=== PATIENT | male | born 1970 | race Caucasian/White ===

== ENCOUNTER 2020-09-26 22:03 | Inpatient (IN) | payer MEDICARE, MEDICAID ==
[~2020-09-26] VITALS: Ht 157.5 cm; Wt 56.7 kg
[2020-09-26] MEDS ORDERED: SODIUM CHLORIDE 0.9% 1,000 ML IV ONE (23:00)
[2020-09-26 23:37] LABS: MEAN CORPUSCULAR HEMOGLOBIN 33.2 pg (28.0-32.0); MEAN CORPUSCULAR VOLUME 103.4 fL (80.0-94.0); MEAN PLATELET VOLUME 8.9 fl (7.4-10.4); PLATELET 252 x1000/uL (130-400); RED CELL DISTRIBUTION WIDTH 21.6 % (11.6-14.6)
[2020-09-26 23:47] LABS: INR 1.2; PARTIAL THROMBOPLASTIN TIME 26.4 sec (23.4-31.0); PROTHROMBIN TIME 12.6 sec (9.6-11.0)
[2020-09-26 23:48] LABS: CHLORIDE 105 mEq/L (98-107)
[2020-09-27] MEDS ORDERED: ACETAMINOPHEN 325MG TABLET PO PRN (01:45)
[2020-09-27] MEDS ORDERED: ONDANSETRON HCL 4MG/2ML INJ IV PRN (01:45)
[2020-09-27] MEDS ORDERED: TRAZODONE HCL 50MG TABLET PO PRN (01:45)
[2020-09-27 01:47] LABS: PLATELET ESTIMATE NORMAL
[2020-09-27 02:52] LABS: CLARITY URINE CLEAR (CLEAR); COLOR URINE YELLOW (YELLOW); KETONES URINE NEGATIVE (NEGATIVE); LEUKOCYTE ESTERASE URINE NEGATIVE (NEGATIVE); NITRITE URINE NEGATIVE (NEGATIVE); OCCULT BLOOD URINE NEGATIVE (NEGATIVE); PROTEIN URINE TRACE (NEGATIVE); SPECIFIC GRAVITY URINE 1.011 (1.005-1.030); UROBILINOGEN URINE 0.2 E.U./dL (0.2-1.0)
[2020-09-27 11:37] VITALS: BP 127/73
[2020-09-27 13:18] VITALS: BP 127/73
[2020-09-27] MEDS ORDERED: IPRATROPIUM/ALBUTEROL 0.5-3(2.5)MG/3ML NEB HHN PRN (14:00)
[2020-09-27 16:00] VITALS: BP 111/69
[2020-09-27] MEDS ORDERED: CARB200C7 MT (16:56)
[2020-09-27] MEDS ORDERED: WARF1TAB85 MT (16:56)
[2020-09-27 20:00] VITALS: BP 112/63
[2020-09-28] VITALS: BP 108/59
[2020-09-28] MEDS: IPRATROPIUM/ALBUTEROL 0.5-3(2.5)MG/3ML NEB HHN SCH ×4 (02:52→21:11)
[2020-09-28 04:00] VITALS: BP 129/77
[2020-09-28 06:55] LABS: CHLORIDE 110 mEq/L (98-107)
[2020-09-28 07:10] LABS: HEMOGLOBIN. 9.8 g/dL (14.0-18.0); MEAN CORPUSCULAR HEMOGLOBIN 34.3 pg (28.0-32.0); MEAN CORPUSCULAR VOLUME 104.9 fL (80.0-94.0); MEAN PLATELET VOLUME 8.9 fl (7.4-10.4); PLATELET 293 x1000/uL (130-400); RED BLOOD CELL COUNT 2.86 mill/uL (4.7-6.1); RED CELL DISTRIBUTION WIDTH 21.5 % (11.6-14.6)
[2020-09-28 08:00] VITALS: BP 115/68
[2020-09-28] MEDS: HEPARIN 5000 UNITS/ML VIAL SUBCUT SCH ×3 (09:00→20:32)
[2020-09-28] MEDS: BUDESONIDE 0.5MG/2ML NEB HHN SCH ×2 (09:40→21:12)
[2020-09-28 12:00] VITALS: BP 135/80
[2020-09-28 16:00] VITALS: BP 106/73
[2020-09-28 18:40] LABS: PLATELET ESTIMATE NORMAL
[2020-09-28 20:00] VITALS: BP 108/72
[2020-09-29] VITALS: BP 138/81
[2020-09-29] MEDS: IPRATROPIUM/ALBUTEROL 0.5-3(2.5)MG/3ML NEB HHN SCH ×4 (02:38→20:37)
[2020-09-29 04:00] VITALS: BP 127/69
[2020-09-29 07:19] LABS: HEMATOCRIT. 32.2 % (42.0-52.0); HEMOGLOBIN. 10.6 g/dL (14.0-18.0); MEAN CORPUSCULAR HEMOGLOBIN 34.4 pg (28.0-32.0); MEAN CORPUSCULAR VOLUME 104.2 fL (80.0-94.0); PLATELET 284 x1000/uL (130-400); RED BLOOD CELL COUNT 3.09 mill/uL (4.7-6.1); RED CELL DISTRIBUTION WIDTH 21.2 % (11.6-14.6)
[2020-09-29 07:42] LABS: CHLORIDE 114 mEq/L (98-107)
[2020-09-29 08:00] VITALS: BP 109/69
[2020-09-29] MEDS: BUDESONIDE 0.5MG/2ML NEB HHN SCH ×3 (08:15→20:38)
[2020-09-29] MEDS: HEPARIN 5000 UNITS/ML VIAL SUBCUT SCH ×2 (08:48→22:42)
[2020-09-29 12:00] VITALS: BP 114/72
[2020-09-29 13:57] LABS: PLATELET ESTIMATE NORMAL
[2020-09-29 16:00] VITALS: BP 111/72
[2020-09-29 20:00] VITALS: BP 110/54
[2020-09-30] VITALS: BP 97/56
[2020-09-30] MEDS: IPRATROPIUM/ALBUTEROL 0.5-3(2.5)MG/3ML NEB HHN SCH ×4 (02:10→20:55)
[2020-09-30 04:00] VITALS: BP 115/48
[2020-09-30] MEDS: BUDESONIDE 0.5MG/2ML NEB HHN SCH (06:00)
[2020-09-30 06:57] LABS: BASOPHILS % 0.4 % (0.0-2.0); EOSINOPHILS % 0.7 % (0.0-5.0); HEMATOCRIT. 31.8 % (42.0-52.0); HEMOGLOBIN. 10.3 g/dL (14.0-18.0); LYMPHOCYTES % 20.2 % (20.0-50.0); MEAN CORPUSCULAR HEMOGLOBIN 33.8 pg (28.0-32.0); MEAN CORPUSCULAR VOLUME 104.6 fL (80.0-94.0); MEAN PLATELET VOLUME 8.8 fl (7.4-10.4); MONOCYTES % 12.6 % (2.0-8.0); NEUTROPHILS % 66.1 % (40.0-76.0); PLATELET 301 x1000/uL (130-400); RED BLOOD CELL COUNT 3.04 mill/uL (4.7-6.1); RED CELL DISTRIBUTION WIDTH 21.3 % (11.6-14.6)
[2020-09-30 07:18] LABS: CHLORIDE 113 mEq/L (98-107)
[2020-09-30 08:00] VITALS: BP 115/76
[2020-09-30] MEDS: HEPARIN 5000 UNITS/ML VIAL SUBCUT SCH (09:19)
[2020-09-30] MEDS: CARBAMAZEPINE 200MG TABLET PO SCH ×2 (10:09→21:26)
[2020-09-30] MEDS ORDERED: METOPROLOL TARTRATE 25MG TABLET PO SCH (10:15)
[2020-09-30 12:00] VITALS: BP 117/77
[2020-09-30] MEDS: ENOXAPARIN 60MG/0.6ML SYR SUBCUT SCH ×2 (12:00→21:27)
[2020-09-30 16:00] VITALS: BP 121/75
[2020-09-30] MEDS ORDERED: WARFARIN SODIUM 5MG TABLET PO SCH (18:00)
[2020-09-30] MEDS: SODIUM CHLORIDE 0.9% 1,000 ML IV SCH (19:08)
[2020-09-30 20:00] VITALS: BP 111/63
[2020-09-30] MEDS ORDERED: LORAZEPAM 0.5MG TABLET PO PRN (20:15)
[2020-09-30] MEDS: VANCOMYCIN 750 MG PREMIX 150 ML IV SCH (21:26)
[2020-09-30] MEDS ORDERED: PIPERACILLIN/TAZOBACTAM 3.375 G/VIAL IV SCH (22:00)
[2020-09-30] MEDS: PIPERACILLIN/TAZOBACTAM 3.375 G in DEXT 5% WATER 100 ML IV SCH (23:28)
[2020-10-01] VITALS: BP 111/82
[2020-10-01] MEDS: IPRATROPIUM/ALBUTEROL 0.5-3(2.5)MG/3ML NEB HHN SCH ×2 (02:30→09:09)
[2020-10-01] MEDS: PIPERACILLIN/TAZOBACTAM 3.375 G in DEXT 5% WATER 100 ML IV SCH ×2 (03:43→09:47)
[2020-10-01 04:00] VITALS: BP 108/75
[2020-10-01] MEDS: VANCOMYCIN 750 MG PREMIX 150 ML IV SCH (05:11)
[2020-10-01 06:24] LABS: BASOPHILS % 0.5 % (0.0-2.0); EOSINOPHILS % 0.8 % (0.0-5.0); HEMATOCRIT. 33.9 % (42.0-52.0); LYMPHOCYTES % 16.9 % (20.0-50.0); MEAN CORPUSCULAR HEMOGLOBIN 34.1 pg (28.0-32.0); MEAN CORPUSCULAR VOLUME 105.5 fL (80.0-94.0); MEAN PLATELET VOLUME 9.5 fl (7.4-10.4); MONOCYTES % 10.1 % (2.0-8.0); NEUTROPHILS % 71.7 % (40.0-76.0); PLATELET 236 x1000/uL (130-400); RED BLOOD CELL COUNT 3.21 mill/uL (4.7-6.1); RED CELL DISTRIBUTION WIDTH 21.7 % (11.6-14.6)
[2020-10-01 06:31] LABS: INR 1.1; PROTHROMBIN TIME 12.1 sec (9.6-11.0)
[2020-10-01 06:36] LABS: CHLORIDE 110 mEq/L (98-107)
[2020-10-01 08:00] VITALS: BP 116/80
[2020-10-01] MEDS: ENOXAPARIN 60MG/0.6ML SYR SUBCUT SCH (09:47)
[2020-10-01] MEDS: CARBAMAZEPINE 200MG TABLET PO SCH (09:47)
[2020-10-01] MEDS: SODIUM CHLORIDE 0.9% 1,000 ML IV SCH (09:48)
[2020-10-01 12:00] VITALS: BP 101/60
[2020-10-01 14:10] VITALS: BP 101/60
[2020-10-01] MEDS ORDERED: WARFARIN SODIUM 5MG TABLET PO NR (18:00)
== END 2020-10-01 14:18 | DRG 871 ==
LOC: ER 22:03 → 6EST 09-27 00:56 → EDBEDREQ 09-27 01:05 → EDBEDREQSVC 09-27 03:53 → EDBEDREQTM 09-27 03:53 → ENRESERV 09-27 08:09
PROVIDERS: ADMIT Internal Medicine; ATTEND Internal Medicine
DX: A41.9 Sepsis, unspecified organism (principal); J18.1 Lobar pneumonia, unspecified organism; E43 Unspecified severe protein-calorie malnutrition; J96.11 Chronic respiratory failure with hypoxia; J44.0 Chronic obstructive pulmonary disease with (acute) lower respiratory infection; R65.20 Severe sepsis without septic shock; R62.50 Unspecified lack of expected normal physiological development in childhood; D64.9 Anemia, unspecified; S90.822A Blister (nonthermal), left foot, initial encounter; S90.821A Blister (nonthermal), right foot, initial encounter; G40.909 Epilepsy, unspecified, not intractable, without status epilepticus; R13.10 Dysphagia, unspecified; L89.159 Pressure ulcer of sacral region, unspecified stage; Z87.01 Personal history of pneumonia (recurrent); Z93.3 Colostomy status; Z79.01 Long term (current) use of anticoagulants; Z99.81 Dependence on supplemental oxygen; Z68.22 Body mass index [BMI] 22.0-22.9, adult; Z79.899 Other long term (current) drug therapy; X58.XXXA Exposure to other specified factors, initial encounter; Y93.89 Activity, other specified; Y92.89 Other specified places as the place of occurrence of the external cause; Y99.8 Other external cause status; Z20.822 Contact with and (suspected) exposure to COVID-19
CPT/HCPCS: 36415; 71045; 80053; 81003; 83605; 83735; 83880; 84145; 84484; 85025; 87426; 93005; 93306; 94640; 99285; J1644; J1650; J2543; J3370; J7030; J7060; J7626

== ENCOUNTER 2021-07-31 21:00 | Inpatient (IN) | payer MEDICARE, MEDICAID ==
[~2021-07-31] VITALS: Ht 175.3 cm; Wt 62.1 kg
[~2021-07-31 21:00] MED LIST: CARB200C7 MT; WARF1TAB85 MT
[2021-07-31] MEDS ORDERED: PIPERACILLIN/TAZOBACTAM 3.375GM/50ML PREMIX IV ONE (21:45)
[2021-07-31] MEDS ORDERED: VANCOMYCIN 1G PREMIX 200 ML IV SCH (21:45)
[2021-07-31] MEDS ORDERED: SODIUM CHLORIDE 0.9% 1,000 ML IV ONE (21:45)
[2021-07-31] MEDS ORDERED: PIPERACILLIN/TAZ 3.375G PREMIX 50 ML IV NR (22:15)
[2021-07-31 22:41] LABS: HEMATOCRIT. 44.3 % (42.0-52.0); HEMOGLOBIN. 15.1 g/dL (14.0-18.0); MEAN CORPUSCULAR HEMOGLOBIN 37.1 pg (28.0-32.0); MEAN CORPUSCULAR VOLUME 108.8 fL (80.0-94.0); MEAN PLATELET VOLUME 9.8 fl (7.4-10.4); PLATELET 234 x1000/uL (130-400); RED BLOOD CELL COUNT 4.07 mill/uL (4.7-6.1)
[2021-07-31 22:46] LABS: CHLORIDE 100 mEq/L (98-107)
[2021-07-31 22:56] LABS: ETHANOL BLOOD < 10 mg/dL
[2021-07-31 22:59] LABS: CREATINE KINASE 112 IU/L (39-308)
[2021-07-31 23:02] LABS: PLATELET ESTIMATE NORMAL
[2021-07-31 23:30] LABS: CLARITY URINE CLOUDY (CLEAR); COLOR URINE DARK YELLOW (YELLOW); KETONES URINE NEGATIVE (NEGATIVE); LEUKOCYTE ESTERASE URINE 1+ (NEGATIVE); NITRITE URINE NEGATIVE (NEGATIVE); OCCULT BLOOD URINE 2+ (NEGATIVE); PH URINE 5.5 (4.5-8.0); PROTEIN URINE 2+ (NEGATIVE); SPECIFIC GRAVITY URINE 1.027 (1.005-1.030)
[2021-07-31 23:50] LABS: CANNABINOID URINE SCREEN NEGATIVE (NEGATIVE); METHADONE URINE SCREEN NEGATIVE (NEGATIVE); OPIATES URINE SCREEN NEGATIVE (NEGATIVE)
[2021-07-31 23:51] LABS: *AMPHETAMINES SCREEN URINE NEGATIVE (NEGATIVE); *BARBITURATES SCREEN URINE NEGATIVE (NEGATIVE); *BENZODIAZEPINES SCREEN URINE NEGATIVE (NEGATIVE); *COCAINE SCREEN URINE NEGATIVE (NEGATIVE); PHENCYCLIDINE URINE SCREEN NEGATIVE (NEGATIVE)
[2021-08-01] MEDS ORDERED: PIPERACILLIN/TAZOBACTAM 3.375 G in DEXTROSE 5% WATER 50 ML IV SCH ×2 (03:00→11:00)
[2021-08-01] MEDS ORDERED: IPRATROPIUM/ALBUTEROL 0.5-3(2.5)MG/3ML NEB HHN PRN ×2 (10:15→14:00)
[2021-08-01 12:13] LABS: BG BASE EXCESS -1.4 mmol/L (-2.0-2.0); BG CARBOXYHEMOGLOBIN 0.3 % (0.5-1.5); BG DEOXYHEMOGLOBIN 0.8 % (0.0-5.0); BG FRACTION INSPIRED OXYGEN 70; BG HCO3 ACT 22.3 mmol/L (22.0-26.0); BG METHEMOGLOBIN 0.4 % (0.0-1.5); BG OXYGEN SATURATION 99.2 % (92.0-98.5); BG OXYHEMOGLOBIN 98.5 % (94.0-97.0); BG PCO2 34.1 mmHg (35.0-45.0); BG PH 7.433 (7.350-7.450); BG PO2 176.1 mmHg (75.0-100.0); BG SAMPLE SITE RIGHT RADIAL; BG TOTAL HEMOGLOBIN 12.3 g/dL (12.0-18.0); BG TOTAL RESPIRATORY RATE 23 b/min; BG VENT MODE MASK - BIPAP
[2021-08-01] MEDS: PIPERACILLIN/TAZOBACTAM 3.375 G in DEXTROSE 5% WATER 50 ML IV SCH ×2 (12:45→22:29)
[2021-08-01] MEDS: METHYLPREDNISOLONE SOD SUCC 40 MG/ML VIAL IV SCH ×2 (14:15→22:29)
[2021-08-01 15:27] LABS: INR 1.2; PROTHROMBIN TIME 12.4 sec (9.6-11.0)
[2021-08-01] MEDS: IPRATROPIUM/ALBUTEROL 0.5-3(2.5)MG/3ML NEB HHN SCH ×2 (16:00→20:00)
[2021-08-01] MEDS: RIVAROXABAN 20 MG TABLET PO SCH (17:30)
[2021-08-02] MEDS: IPRATROPIUM/ALBUTEROL 0.5-3(2.5)MG/3ML NEB HHN SCH ×7 (01:58→23:41)
[2021-08-02 05:59] LABS: INR 1.2; PROTHROMBIN TIME 12.9 sec (9.6-11.0)
[2021-08-02] MEDS: METHYLPREDNISOLONE SOD SUCC 40 MG/ML VIAL IV SCH ×2 (06:15→21:09)
[2021-08-02] MEDS: PIPERACILLIN/TAZOBACTAM 3.375 G in DEXTROSE 5% WATER 50 ML IV SCH ×2 (06:15→22:00)
[2021-08-02] MEDS: RIVAROXABAN 20 MG TABLET PO SCH (17:00)
[2021-08-02 19:00] VITALS: BP 102/73
[2021-08-02 20:00] VITALS: BP 136/63
[2021-08-02 22:00] VITALS: BP 128/96
[2021-08-03] VITALS (12 sets, daily range): BP systolic 121–138; BP diastolic 46–73
[2021-08-03] MEDS: METHYLPREDNISOLONE SOD SUCC 40 MG/ML VIAL IV SCH ×3 (01:57→17:39)
[2021-08-03] MEDS: IPRATROPIUM/ALBUTEROL 0.5-3(2.5)MG/3ML NEB HHN SCH ×5 (04:25→20:59)
[2021-08-03] MEDS: PIPERACILLIN/TAZOBACTAM 3.375 G in DEXTROSE 5% WATER 50 ML IV SCH ×3 (05:18→21:36)
[2021-08-03 06:23] LABS: INR 1.1; PROTHROMBIN TIME 12.1 sec (9.6-11.0)
[2021-08-03] MEDS: METOPROLOL TARTRATE 25MG TABLET PO SCH ×2 (09:29→21:35)
[2021-08-03 10:09] LABS: HEMATOCRIT. 33.4 % (42.0-52.0); HEMOGLOBIN. 11.5 g/dL (14.0-18.0); MEAN CORPUSCULAR HEMOGLOBIN 37.4 pg (28.0-32.0); MEAN CORPUSCULAR VOLUME 108.3 fL (80.0-94.0); MEAN PLATELET VOLUME 9.6 fl (7.4-10.4); PLATELET 189 x1000/uL (130-400); RED BLOOD CELL COUNT 3.08 mill/uL (4.7-6.1); RED CELL DISTRIBUTION WIDTH 14.2 % (11.6-14.6)
[2021-08-03 11:36] LABS: CHLORIDE 104 mEq/L (98-107)
[2021-08-03] MEDS ORDERED: ONDANSETRON HCL 4MG/2ML INJ IV PRN (12:45)
[2021-08-03 14:47] LABS: PLATELET ESTIMATE NORMAL
[2021-08-03] MEDS: ASCORBIC ACID 500 MG TABLET PO SCH (14:50)
[2021-08-03] MEDS ORDERED: RIVAROXABAN 10 MG TABLET PO SCH (17:00)
[2021-08-03] MEDS: RIVAROXABAN 20 MG TABLET PO SCH (17:39)
[2021-08-03] MEDS: SODIUM CHLORIDE 1000MG TABLET PO SCH (17:40)
[2021-08-03] MEDS: TRAZODONE HCL 50MG TABLET PO SCH (21:35)
[2021-08-03] MEDS: CARBAMAZEPINE 200MG TABLET PO SCH (21:35)
[2021-08-04] VITALS (11 sets, daily range): BP systolic 117–142; BP diastolic 44–81
[2021-08-04] MEDS: METHYLPREDNISOLONE SOD SUCC 40 MG/ML VIAL IV SCH ×3 (01:47→17:41)
[2021-08-04] MEDS: IPRATROPIUM/ALBUTEROL 0.5-3(2.5)MG/3ML NEB HHN SCH ×5 (04:26→21:35)
[2021-08-04] MEDS: PIPERACILLIN/TAZOBACTAM 3.375 G in DEXTROSE 5% WATER 50 ML IV SCH ×3 (05:23→21:23)
[2021-08-04] MEDS: LEVOTHYROXINE SODIUM 50MCG TABLET PO SCH (08:04)
[2021-08-04] MEDS: DOCUSATE SODIUM SUGAR FREE 100MG/10ML UDC GT SCH (08:05)
[2021-08-04] MEDS: SODIUM CHLORIDE 1000MG TABLET PO SCH ×2 (08:05→17:41)
[2021-08-04] MEDS: CARBAMAZEPINE 200MG TABLET PO SCH ×2 (08:05→20:27)
[2021-08-04] MEDS: METOPROLOL TARTRATE 25MG TABLET PO SCH ×2 (08:05→20:25)
[2021-08-04] MEDS: ASCORBIC ACID 500 MG TABLET PO SCH (08:05)
[2021-08-04] MEDS: OMEPRAZOLE 20MG CAPSULE EXTENDED RELEASE PO SCH (08:05)
[2021-08-04] MEDS: POLYETHYLENE GLYCOL 3350 (17GM) 1 DOSE PACK PO SCH (08:06)
[2021-08-04 09:33] LABS: INR 1.1; PROTHROMBIN TIME 12.2 sec (9.6-11.0)
[2021-08-04] MEDS: RIVAROXABAN 20 MG TABLET PO SCH (17:42)
[2021-08-04] MEDS: TRAZODONE HCL 50MG TABLET PO SCH (20:27)
[2021-08-05] VITALS (11 sets, daily range): BP systolic 112–138; BP diastolic 65–76
[2021-08-05] MEDS: IPRATROPIUM/ALBUTEROL 0.5-3(2.5)MG/3ML NEB HHN SCH ×6 (00:54→20:38)
[2021-08-05] MEDS: METHYLPREDNISOLONE SOD SUCC 40 MG/ML VIAL IV SCH ×3 (01:14→20:45)
[2021-08-05] MEDS: LEVOTHYROXINE SODIUM 50MCG TABLET PO SCH (05:41)
[2021-08-05] MEDS: PIPERACILLIN/TAZOBACTAM 3.375 G in DEXTROSE 5% WATER 50 ML IV SCH ×3 (05:41→20:50)
[2021-08-05] MEDS: OMEPRAZOLE 20MG CAPSULE EXTENDED RELEASE PO SCH (05:41)
[2021-08-05] MEDS: POLYETHYLENE GLYCOL 3350 (17GM) 1 DOSE PACK PO SCH (08:38)
[2021-08-05] MEDS: DOCUSATE SODIUM SUGAR FREE 100MG/10ML UDC GT SCH (08:38)
[2021-08-05] MEDS: SODIUM CHLORIDE 1000MG TABLET PO SCH ×2 (08:39→18:32)
[2021-08-05] MEDS: METOPROLOL TARTRATE 25MG TABLET PO SCH ×2 (08:39→20:48)
[2021-08-05] MEDS: CARBAMAZEPINE 200MG TABLET PO SCH ×2 (08:39→20:49)
[2021-08-05] MEDS: ASCORBIC ACID 500 MG TABLET PO SCH (08:39)
[2021-08-05] MEDS: RIVAROXABAN 20 MG TABLET PO SCH (18:32)
[2021-08-05] MEDS: TRAZODONE HCL 50MG TABLET PO SCH (20:49)
[2021-08-06] VITALS (8 sets, daily range): BP systolic 119–139; BP diastolic 58–89
[2021-08-06] MEDS: IPRATROPIUM/ALBUTEROL 0.5-3(2.5)MG/3ML NEB HHN SCH ×4 (00:48→11:59)
[2021-08-06] MEDS: PIPERACILLIN/TAZOBACTAM 3.375 G in DEXTROSE 5% WATER 50 ML IV SCH (05:17)
[2021-08-06 06:11] LABS: HEMATOCRIT. 33.1 % (42.0-52.0); HEMOGLOBIN. 11.2 g/dL (14.0-18.0); MEAN CORPUSCULAR HEMOGLOBIN 36.8 pg (28.0-32.0); MEAN CORPUSCULAR VOLUME 108.5 fL (80.0-94.0); MEAN PLATELET VOLUME 8.8 fl (7.4-10.4); PLATELET 200 x1000/uL (130-400); RED BLOOD CELL COUNT 3.05 mill/uL (4.7-6.1); RED CELL DISTRIBUTION WIDTH 14.4 % (11.6-14.6)
[2021-08-06 06:12] LABS: CHLORIDE 102 mEq/L (98-107)
[2021-08-06] MEDS: OMEPRAZOLE 20MG CAPSULE EXTENDED RELEASE PO SCH (06:49)
[2021-08-06] MEDS: LEVOTHYROXINE SODIUM 50MCG TABLET PO SCH (06:49)
[2021-08-06] MEDS: METHYLPREDNISOLONE SOD SUCC 40 MG/ML VIAL IV SCH (09:45)
[2021-08-06] MEDS: ASCORBIC ACID 500 MG TABLET PO SCH (09:46)
[2021-08-06] MEDS: METOPROLOL TARTRATE 25MG TABLET PO SCH (09:46)
[2021-08-06] MEDS: POLYETHYLENE GLYCOL 3350 (17GM) 1 DOSE PACK PO SCH (09:46)
[2021-08-06] MEDS: SODIUM CHLORIDE 1000MG TABLET PO SCH (09:47)
[2021-08-06] MEDS: DOCUSATE SODIUM SUGAR FREE 100MG/10ML UDC GT SCH (09:47)
[2021-08-06] MEDS: CARBAMAZEPINE 200MG TABLET PO SCH (09:47)
[2021-08-06 12:21] LABS: PLATELET ESTIMATE NORMAL
[2021-08-06] MEDS ORDERED: MEROPENEM 1,000 MG in SODIUM CHLORIDE 0.9% 100 ML IV SCH (14:00)
== END 2021-08-06 17:52 | disposition home or self-care (01) | DRG 177 ==
LOC: ER 21:00 → MICUSO 23:53 → EDBEDREQTM 08-01 00:09 → EDBEDREQ 08-01 00:09 → EDBEDREQSVC 08-01 00:09 → 5EST 08-02 19:05
PROVIDERS: ADMIT Internal Medicine; ATTEND Internal Medicine
PROC: 5A09457 Assistance with Respiratory Ventilation, 24-96 Consecutive Hours, Continuous Positive Airway Pressure (ICD-10-PCS; principal; 2021-07-31)
PROC: 5A09357 Assistance with Respiratory Ventilation, Less than 24 Consecutive Hours, Continuous Positive Airway Pressure (ICD-10-PCS; 2021-08-02)
PROC: 5A09357 Assistance with Respiratory Ventilation, Less than 24 Consecutive Hours, Continuous Positive Airway Pressure (ICD-10-PCS; 2021-08-03)
DX: J69.0 Pneumonitis due to inhalation of food and vomit (principal); J96.00 Acute respiratory failure, unspecified whether with hypoxia or hypercapnia; J44.1 Chronic obstructive pulmonary disease with (acute) exacerbation; E87.1 Hypo-osmolality and hyponatremia; E44.0 Moderate protein-calorie malnutrition; J44.0 Chronic obstructive pulmonary disease with (acute) lower respiratory infection; Z20.822 Contact with and (suspected) exposure to COVID-19; R82.71 Bacteriuria; R13.10 Dysphagia, unspecified; Z93.1 Gastrostomy status; Q90.9 Down syndrome, unspecified; Z93.3 Colostomy status; Z68.30 Body mass index [BMI] 30.0-30.9, adult; Z87.01 Personal history of pneumonia (recurrent); Z99.81 Dependence on supplemental oxygen
CPT/HCPCS: 36415; 36600; 71045; 80048; 80053; 80305; 80320; 81003; 82375; 82550; 82728; 82805; 83605; 83880; 84145; 84484; 85025; 86140; 86850; 86900; 87077; 87186; 87426; 87804; 92610; 93005; 94640; 94660; 99291; J2185; J2405; J2543; J2920; J3370; J7030; J7050; J7060; G0480

== ENCOUNTER 2021-08-10 12:41 | Inpatient (IN) | payer MEDICARE, MEDICAID ==
[~2021-08-10] VITALS: Ht 157.5 cm; Wt 65.4 kg
[2021-08-10] MEDS ORDERED: ALBUTEROL (0.083%) 2.5MG/3ML NEB HHN STA (13:08)
[2021-08-10] MEDS ORDERED: METHYLPREDNISOLONE SOD SUCC 125 MG/2 ML VIAL IV STA (13:08)
[2021-08-10] MEDS ORDERED: IPRATROPIUM BROMIDE (0.02%) 0.5MG/2.5ML NEB HHN STA (13:08)
[2021-08-10] MEDS ORDERED: SODIUM CHLORIDE 0.9% 1,000 ML IV ONE (13:15)
[2021-08-10 14:00] LABS: HEMATOCRIT. 40.1 % (42.0-52.0); HEMOGLOBIN. 13.3 g/dL (14.0-18.0); MEAN CORPUSCULAR HEMOGLOBIN 36.2 pg (28.0-32.0); MEAN CORPUSCULAR VOLUME 109.1 fL (80.0-94.0); MEAN PLATELET VOLUME 8.5 fl (7.4-10.4); PLATELET 249 x1000/uL (130-400); RED BLOOD CELL COUNT 3.67 mill/uL (4.7-6.1); RED CELL DISTRIBUTION WIDTH 14.5 % (11.6-14.6)
[2021-08-10 14:07] LABS: CHLORIDE 102 mEq/L (98-107)
[2021-08-10] MEDS ORDERED: PIPERACILLIN/TAZOBACTAM 3.375GM/50ML PREMIX IV STA (14:11)
[2021-08-10] MEDS ORDERED: VANCOMYCIN 1G PREMIX 200 ML IV STA (14:11)
[2021-08-10] MEDS ORDERED: PIPERACILLIN/TAZ 3.375G PREMIX 50 ML IV NR (14:30)
[2021-08-10] MEDS ORDERED: VANCOMYCIN 1GM PMX (XELLIA) 200 ML IV NR (14:30)
[2021-08-10 14:35] LABS: PLATELET ESTIMATE NORMAL
[2021-08-10] MEDS ORDERED: DOCUSATE SODIUM 100MG CAPSULE PO PRN (21:30)
[2021-08-10] MEDS ORDERED: HYDROCODONE/ACETAMINOPHEN 5/325MG TABLET PO PRN (21:30)
[2021-08-10] MEDS ORDERED: MAGNESIUM/ALUMINUM HYDROXIDE/SIMETHICONE 30ML UDC PO PRN (21:30)
[2021-08-10] MEDS ORDERED: CLONIDINE 0.1MG TABLET PO PRN (21:30)
[2021-08-10] MEDS ORDERED: ONDANSETRON HCL 4MG/2ML INJ IV PRN (21:30)
[2021-08-10] MEDS ORDERED: GUAIFENESIN 200MG/10ML SUGAR FREE UDC PO PRN (21:30)
[2021-08-10] MEDS ORDERED: ACETAMINOPHEN 325MG TABLET PO PRN (21:30)
[2021-08-10] MEDS ORDERED: IPRATROPIUM/ALBUTEROL 0.5-3(2.5)MG/3ML NEB HHN PRN (21:30)
[2021-08-10] MEDS ORDERED: ENOXAPARIN 40MG/0.4ML SYR SUBCUT SCH (21:33)
[2021-08-10] MEDS ORDERED: VANCOMYCIN 1GM PMX (XELLIA) 200 ML IV SCH (22:00)
[2021-08-10] MEDS ORDERED: VANCOMYCIN 1G PREMIX 200 ML IV SCH (22:00)
[2021-08-10] MEDS: METHYLPREDNISOLONE SOD SUCC 40 MG/ML VIAL IV SCH (23:11)
[2021-08-11] MEDS ORDERED: VANCOMYCIN 1,000 MG in DEXT 5% WATER 250 ML IV SCH (03:00)
[2021-08-11 03:29] LABS: HEMATOCRIT. 35.9 % (42.0-52.0); HEMOGLOBIN. 12.1 g/dL (14.0-18.0); MEAN CORPUSCULAR HEMOGLOBIN 36.4 pg (28.0-32.0); MEAN CORPUSCULAR VOLUME 107.8 fL (80.0-94.0); MEAN PLATELET VOLUME 8.5 fl (7.4-10.4); PLATELET 219 x1000/uL (130-400); RED BLOOD CELL COUNT 3.33 mill/uL (4.7-6.1); RED CELL DISTRIBUTION WIDTH 14.6 % (11.6-14.6)
[2021-08-11 03:32] LABS: CHLORIDE 105 mEq/L (98-107)
[2021-08-11 03:39] LABS: LDL CHOLESTEROL 72 mg/dL (5-100)
[2021-08-11 03:41] LABS: HDL CHOLESTEROL 69 mg/dL (40-59)
[2021-08-11 03:43] LABS: CREATINE KINASE 114 IU/L (39-308)
[2021-08-11 03:44] LABS: CREATINE KINASE MB FRACTION 2.3 ng/mL (0.5-3.6)
[2021-08-11] MEDS: PIPERACILLIN/TAZOBACTAM 3.375 G in DEXTROSE 5% WATER 50 ML IV SCH ×2 (03:52→07:54)
[2021-08-11] MEDS: IPRATROPIUM/ALBUTEROL 0.5-3(2.5)MG/3ML NEB HHN SCH ×7 (04:00→20:15)
[2021-08-11] MEDS: METHYLPREDNISOLONE SOD SUCC 40 MG/ML VIAL IV SCH ×3 (06:35→22:00)
[2021-08-11 07:50] LABS: PLATELET ESTIMATE NORMAL
[2021-08-11 10:15] LABS: *AMPHETAMINES SCREEN URINE NEGATIVE (NEGATIVE); *BARBITURATES SCREEN URINE NEGATIVE (NEGATIVE); *BENZODIAZEPINES SCREEN URINE NEGATIVE (NEGATIVE); *COCAINE SCREEN URINE NEGATIVE (NEGATIVE)
[2021-08-11 10:16] LABS: CANNABINOID URINE SCREEN NEGATIVE (NEGATIVE); OPIATES URINE SCREEN NEGATIVE (NEGATIVE); PHENCYCLIDINE URINE SCREEN NEGATIVE (NEGATIVE)
[2021-08-11 10:17] LABS: METHADONE URINE SCREEN NEGATIVE (NEGATIVE)
[2021-08-11 11:12] LABS: BG BASE EXCESS -1.5 mmol/L (-2.0-2.0); BG CARBOXYHEMOGLOBIN 0.3 % (0.5-1.5); BG DEOXYHEMOGLOBIN 5.4 % (0.0-5.0); BG FRACTION INSPIRED OXYGEN 28; BG HCO3 ACT 21.4 mmol/L (22.0-26.0); BG METHEMOGLOBIN 0.2 % (0.0-1.5); BG OXYGEN SATURATION 94.6 % (92.0-98.5); BG OXYHEMOGLOBIN 94.1 % (94.0-97.0); BG PCO2 30.5 mmHg (35.0-45.0); BG PH 7.463 (7.350-7.450); BG PO2 71.8 mmHg (75.0-100.0); BG SAMPLE SITE RIGHT BRACHIAL; BG TOTAL HEMOGLOBIN 12.4 g/dL (12.0-18.0); BG VENT MODE NASAL CANNULA
[2021-08-11 13:55] LABS: CREATINE KINASE 148 IU/L (39-308)
[2021-08-11 13:56] LABS: CREATINE KINASE MB FRACTION 2.4 ng/mL (0.5-3.6); INR 1.2; PROTHROMBIN TIME 12.9 sec (9.6-11.0)
[2021-08-11] MEDS: ACETYLCYSTEINE 100MG/ML 10% VIAL 4ML INH SCH ×2 (15:21→22:00)
[2021-08-11] MEDS: METRONIDAZOLE 500 MG PREMIX 100 ML IV SCH ×2 (15:24→19:00)
[2021-08-11] MEDS: CEFTRIAXONE 1,000 MG in DEXTROSE 5% WATER 50 ML IV SCH (15:25)
[2021-08-11] MEDS ORDERED: RIVAROXABAN 20 MG TABLET PO SCH (17:00)
[2021-08-11] MEDS ORDERED: CARBAMAZEPINE 200MG/10ML UDC PO SCH (17:00)
[2021-08-11] MEDS ORDERED: CARBAMAZEPINE 200MG TABLET PO SCH (17:00)
[2021-08-11] MEDS: GUAIFENESIN 600MG ER TABLET PO SCH (21:00)
[2021-08-11] MEDS ORDERED: VANCOMYCIN 1GM PMX (XELLIA) 200 ML IV SCH (22:15)
[2021-08-11] MEDS ORDERED: VANCOMYCIN 750MG PREMIX 150 ML IV SCH (23:00)
[2021-08-12] VITALS (11 sets, daily range): BP systolic 91–149; BP diastolic 38–90
[2021-08-12] MEDS: IPRATROPIUM/ALBUTEROL 0.5-3(2.5)MG/3ML NEB HHN SCH ×4 (01:55→20:55)
[2021-08-12] MEDS: METRONIDAZOLE 500 MG PREMIX 100 ML IV SCH ×3 (03:00→22:27)
[2021-08-12 05:05] LABS: HEMOGLOBIN. 10.6 g/dL (14.0-18.0); MEAN CORPUSCULAR HEMOGLOBIN 37.1 pg (28.0-32.0); MEAN CORPUSCULAR VOLUME 108.8 fL (80.0-94.0); MEAN PLATELET VOLUME 8.6 fl (7.4-10.4); PLATELET 214 x1000/uL (130-400); RED BLOOD CELL COUNT 2.85 mill/uL (4.7-6.1); RED CELL DISTRIBUTION WIDTH 14.7 % (11.6-14.6)
[2021-08-12 05:14] LABS: INR 1.3; PROTHROMBIN TIME 13.5 sec (9.6-11.0)
[2021-08-12 05:15] LABS: CHLORIDE 105 mEq/L (98-107)
[2021-08-12] MEDS: METHYLPREDNISOLONE SOD SUCC 40 MG/ML VIAL IV SCH ×3 (06:16→22:26)
[2021-08-12] MEDS: GUAIFENESIN 600MG ER TABLET PO SCH ×2 (09:21→21:00)
[2021-08-12] MEDS: ACETYLCYSTEINE 100MG/ML 10% VIAL 4ML INH SCH ×2 (09:25→15:40)
[2021-08-12 09:37] LABS: PLATELET ESTIMATE NORMAL
[2021-08-12] MEDS: VANCOMYCIN 750MG PREMIX 150 ML IV SCH ×2 (11:05→18:13)
[2021-08-12] MEDS: CARBAMAZEPINE 200MG TABLET PO SCH ×2 (11:05→17:53)
[2021-08-12] MEDS: CEFTRIAXONE 1,000 MG in DEXTROSE 5% WATER 50 ML IV SCH (13:10)
[2021-08-12] MEDS: ENOXAPARIN 60MG/0.6ML SYR SUBCUT SCH (17:53)
[2021-08-13] VITALS (12 sets, daily range): BP systolic 108–124; BP diastolic 44–82
[2021-08-13] MEDS: ACETYLCYSTEINE 100MG/ML 10% VIAL 4ML INH SCH ×3 (00:47→16:37)
[2021-08-13] MEDS: IPRATROPIUM/ALBUTEROL 0.5-3(2.5)MG/3ML NEB HHN SCH ×6 (00:47→20:24)
[2021-08-13] MEDS: VANCOMYCIN 750MG PREMIX 150 ML IV SCH ×2 (03:12→21:08)
[2021-08-13] MEDS: METRONIDAZOLE 500 MG PREMIX 100 ML IV SCH ×3 (06:19→22:21)
[2021-08-13] MEDS: METHYLPREDNISOLONE SOD SUCC 40 MG/ML VIAL IV SCH ×3 (06:19→22:21)
[2021-08-13] MEDS: ENOXAPARIN 60MG/0.6ML SYR SUBCUT SCH ×2 (06:20→17:29)
[2021-08-13 06:59] LABS: HEMATOCRIT. 31.1 % (42.0-52.0); HEMOGLOBIN. 10.6 g/dL (14.0-18.0); MEAN CORPUSCULAR VOLUME 108.7 fL (80.0-94.0); MEAN PLATELET VOLUME 8.6 fl (7.4-10.4); PLATELET 192 x1000/uL (130-400); RED BLOOD CELL COUNT 2.86 mill/uL (4.7-6.1); RED CELL DISTRIBUTION WIDTH 14.6 % (11.6-14.6)
[2021-08-13 07:05] LABS: INR 1.2; PROTHROMBIN TIME 12.5 sec (9.6-11.0)
[2021-08-13 07:18] LABS: CHLORIDE 106 mEq/L (98-107)
[2021-08-13] MEDS: GUAIFENESIN 600MG ER TABLET PO SCH ×2 (08:44→21:00)
[2021-08-13] MEDS: CARBAMAZEPINE 200MG TABLET PO SCH ×2 (09:10→17:29)
[2021-08-13] MEDS: CEFTRIAXONE 1,000 MG in DEXTROSE 5% WATER 50 ML IV SCH (12:06)
[2021-08-13 18:59] LABS: PLATELET ESTIMATE NORMAL
[2021-08-14] VITALS (9 sets, daily range): BP systolic 112–142; BP diastolic 43–87
[2021-08-14] MEDS: IPRATROPIUM/ALBUTEROL 0.5-3(2.5)MG/3ML NEB HHN SCH ×6 (00:22→22:01)
[2021-08-14] MEDS: ACETYLCYSTEINE 100MG/ML 10% VIAL 4ML INH SCH ×2 (00:22→09:45)
[2021-08-14] MEDS: METHYLPREDNISOLONE SOD SUCC 40 MG/ML VIAL IV SCH ×2 (05:56→13:16)
[2021-08-14] MEDS: METRONIDAZOLE 500 MG PREMIX 100 ML IV SCH ×3 (05:56→23:18)
[2021-08-14] MEDS: ENOXAPARIN 60MG/0.6ML SYR SUBCUT SCH ×2 (05:57→18:29)
[2021-08-14 05:58] LABS: INR 1.2; PROTHROMBIN TIME 12.4 sec (9.6-11.0)
[2021-08-14] MEDS: GUAIFENESIN 600MG ER TABLET PO SCH ×2 (08:04→23:20)
[2021-08-14] MEDS: VANCOMYCIN 750MG PREMIX 150 ML IV SCH (08:04)
[2021-08-14] MEDS: CARBAMAZEPINE 200MG TABLET PO SCH ×2 (08:04→23:20)
[2021-08-14] MEDS ORDERED: NALOXONE HCL 0.4MG/ML VIAL IV PRN (09:45)
[2021-08-14] MEDS: CEFTRIAXONE 1,000 MG in DEXTROSE 5% WATER 50 ML IV SCH (11:25)
[2021-08-14] MEDS: CEFEPIME 1,000 MG in DEXTROSE 5% WATER 50 ML IV SCH (17:00)
[2021-08-14] MEDS: LINEZOLID 600 MG PREMIX 300 ML IV SCH (18:00)
[2021-08-14] MEDS: METHYLPREDNISOLONE SOD SUCC 125 MG/2 ML VIAL IV SCH (23:19)
[2021-08-14] MEDS: GUAIFENESIN 200MG/10ML SUGAR FREE UDC GT SCH (23:45)
[2021-08-15] MEDS: ACETYLCYSTEINE 100MG/ML 10% VIAL 4ML INH SCH ×5 (00:35→23:21)
[2021-08-15] MEDS: IPRATROPIUM/ALBUTEROL 0.5-3(2.5)MG/3ML NEB HHN SCH ×6 (00:38→21:12)
[2021-08-15] MEDS: GUAIFENESIN 200MG/10ML SUGAR FREE UDC GT SCH ×6 (03:25→23:45)
[2021-08-15] MEDS: CEFEPIME 1,000 MG in DEXTROSE 5% WATER 50 ML IV SCH ×2 (06:44→17:11)
[2021-08-15] MEDS: ENOXAPARIN 60MG/0.6ML SYR SUBCUT SCH ×2 (06:49→17:11)
[2021-08-15] MEDS: METHYLPREDNISOLONE SOD SUCC 125 MG/2 ML VIAL IV SCH ×2 (06:49→13:39)
[2021-08-15] MEDS: METRONIDAZOLE 500 MG PREMIX 100 ML IV SCH ×3 (07:07→21:23)
[2021-08-15] MEDS: LINEZOLID 600 MG PREMIX 300 ML IV SCH ×2 (07:08→18:14)
[2021-08-15 07:16] LABS: HEMATOCRIT. 33.3 % (42.0-52.0); HEMOGLOBIN. 11.5 g/dL (14.0-18.0); MEAN CORPUSCULAR HEMOGLOBIN 37.6 pg (28.0-32.0); MEAN CORPUSCULAR VOLUME 108.7 fL (80.0-94.0); MEAN PLATELET VOLUME 8.7 fl (7.4-10.4); PLATELET 210 x1000/uL (130-400); RED BLOOD CELL COUNT 3.06 mill/uL (4.7-6.1); RED CELL DISTRIBUTION WIDTH 14.7 % (11.6-14.6)
[2021-08-15 07:29] LABS: INR 1.2; PROTHROMBIN TIME 12.8 sec (9.6-11.0)
[2021-08-15 07:52] LABS: CHLORIDE 103 mEq/L (98-107)
[2021-08-15 08:00] VITALS: BP 94/57
[2021-08-15] MEDS: CARBAMAZEPINE 200MG TABLET PO SCH ×2 (08:38→21:08)
[2021-08-15] MEDS ORDERED: DOCUSATE SODIUM SUGAR FREE 100MG/10ML UDC GT PRN (09:00)
[2021-08-15 12:00] VITALS: BP 96/51
[2021-08-15 13:35] LABS: PLATELET ESTIMATE NORMAL
[2021-08-15 16:00] VITALS: BP 93/50
[2021-08-15 20:00] VITALS: BP_SYST 117; BP_SYST 127; BP_DIAS 59; BP_DIAS 62
[2021-08-15] MEDS: METHYLPREDNISOLONE SOD SUCC 40 MG/ML VIAL IV SCH (21:23)
[2021-08-16] VITALS: BP 138/66
[2021-08-16 04:00] VITALS: BP 121/73
[2021-08-16] MEDS: IPRATROPIUM/ALBUTEROL 0.5-3(2.5)MG/3ML NEB HHN SCH ×4 (04:32→21:20)
[2021-08-16] MEDS: GUAIFENESIN 200MG/10ML SUGAR FREE UDC GT SCH ×6 (05:03→23:45)
[2021-08-16] MEDS: CEFEPIME 1,000 MG in DEXTROSE 5% WATER 50 ML IV SCH ×2 (05:03→17:34)
[2021-08-16] MEDS: ENOXAPARIN 60MG/0.6ML SYR SUBCUT SCH ×2 (05:28→17:34)
[2021-08-16] MEDS: LINEZOLID 600 MG PREMIX 300 ML IV SCH ×2 (05:28→18:51)
[2021-08-16] MEDS: METHYLPREDNISOLONE SOD SUCC 40 MG/ML VIAL IV SCH ×3 (05:29→21:17)
[2021-08-16] MEDS: METRONIDAZOLE 500 MG PREMIX 100 ML IV SCH ×3 (05:31→21:17)
[2021-08-16 07:27] LABS: HEMOGLOBIN. 12.5 g/dL (14.0-18.0); MEAN CORPUSCULAR VOLUME 109.4 fL (80.0-94.0); MEAN PLATELET VOLUME 8.9 fl (7.4-10.4); PLATELET 220 x1000/uL (130-400); RED BLOOD CELL COUNT 3.38 mill/uL (4.7-6.1); RED CELL DISTRIBUTION WIDTH 14.6 % (11.6-14.6)
[2021-08-16 07:31] LABS: CHLORIDE 102 mEq/L (98-107); INR 1.2; PROTHROMBIN TIME 12.9 sec (9.6-11.0)
[2021-08-16] MEDS: CARBAMAZEPINE 200MG TABLET PO SCH ×2 (08:43→21:13)
[2021-08-16] MEDS: ACETYLCYSTEINE 100MG/ML 10% VIAL 4ML INH SCH (09:29)
[2021-08-16 16:28] LABS: PLATELET ESTIMATE NORMAL
[2021-08-16 20:00] VITALS: BP 116/65
[2021-08-17] VITALS: BP 132/65
[2021-08-17] MEDS: IPRATROPIUM/ALBUTEROL 0.5-3(2.5)MG/3ML NEB HHN SCH ×6 (00:49→21:30)
[2021-08-17] MEDS: GUAIFENESIN 200MG/10ML SUGAR FREE UDC GT SCH ×6 (03:30→23:22)
[2021-08-17 04:37] VITALS: BP 133/84
[2021-08-17] MEDS: CEFEPIME 1,000 MG in DEXTROSE 5% WATER 50 ML IV SCH ×2 (05:41→16:35)
[2021-08-17] MEDS: ENOXAPARIN 60MG/0.6ML SYR SUBCUT SCH ×2 (05:44→17:19)
[2021-08-17] MEDS: METHYLPREDNISOLONE SOD SUCC 40 MG/ML VIAL IV SCH ×3 (05:44→20:36)
[2021-08-17] MEDS: LINEZOLID 600 MG PREMIX 300 ML IV SCH ×2 (06:10→17:19)
[2021-08-17 08:00] VITALS: BP 127/73
[2021-08-17] MEDS: CARBAMAZEPINE 200MG TABLET PO SCH ×2 (09:39→20:36)
[2021-08-17 12:00] VITALS: BP 107/75
[2021-08-17 16:00] VITALS: BP 109/53
[2021-08-17 20:00] VITALS: BP 95/64
[2021-08-17] MEDS: ACETYLCYSTEINE 100MG/ML 10% VIAL 4ML INH SCH (21:36)
[2021-08-18] VITALS: BP 116/60
[2021-08-18] MEDS: IPRATROPIUM/ALBUTEROL 0.5-3(2.5)MG/3ML NEB HHN SCH ×6 (01:21→21:55)
[2021-08-18] MEDS: GUAIFENESIN 200MG/10ML SUGAR FREE UDC GT SCH ×6 (02:25→21:59)
[2021-08-18 04:00] VITALS: BP 100/61
[2021-08-18] MEDS: LINEZOLID 600 MG PREMIX 300 ML IV SCH ×2 (05:10→17:42)
[2021-08-18] MEDS: ENOXAPARIN 60MG/0.6ML SYR SUBCUT SCH ×2 (05:26→17:43)
[2021-08-18] MEDS: METHYLPREDNISOLONE SOD SUCC 40 MG/ML VIAL IV SCH (06:38)
[2021-08-18] MEDS: CEFEPIME 1,000 MG in DEXTROSE 5% WATER 50 ML IV SCH ×2 (06:39→16:04)
[2021-08-18] MEDS: ACETYLCYSTEINE 100MG/ML 10% VIAL 4ML INH SCH ×4 (07:59→21:56)
[2021-08-18 08:00] VITALS: BP 107/57
[2021-08-18] MEDS: CARBAMAZEPINE 200MG TABLET PO SCH ×2 (09:37→21:46)
[2021-08-18] MEDS ORDERED: LINE600T14 MT (10:23)
[2021-08-18 12:00] VITALS: BP 103/66
[2021-08-18] MEDS: PREDNISONE 20MG TABLET PO SCH (13:13)
[2021-08-18] MEDS: BUDESONIDE 0.5MG/2ML NEB HHN SCH (15:18)
[2021-08-18 16:00] VITALS: BP 113/54
[2021-08-18 20:00] VITALS: BP 101/54
[2021-08-19] VITALS: BP 94/59
[2021-08-19] MEDS: IPRATROPIUM/ALBUTEROL 0.5-3(2.5)MG/3ML NEB HHN SCH ×6 (00:26→21:20)
[2021-08-19] MEDS: BUDESONIDE 0.5MG/2ML NEB HHN SCH ×2 (00:30→09:16)
[2021-08-19 04:00] VITALS: BP 106/69
[2021-08-19] MEDS: CEFEPIME 1,000 MG in DEXTROSE 5% WATER 50 ML IV SCH ×2 (04:15→16:44)
[2021-08-19] MEDS: GUAIFENESIN 200MG/10ML SUGAR FREE UDC GT SCH ×5 (04:15→19:45)
[2021-08-19] MEDS: LINEZOLID 600 MG PREMIX 300 ML IV SCH ×2 (06:15→17:41)
[2021-08-19] MEDS: ENOXAPARIN 60MG/0.6ML SYR SUBCUT SCH ×2 (06:35→17:41)
[2021-08-19 08:00] VITALS: BP 97/67
[2021-08-19] MEDS: PREDNISONE 20MG TABLET PO SCH ×2 (08:33→16:44)
[2021-08-19] MEDS: CARBAMAZEPINE 200MG TABLET PO SCH ×2 (08:33→21:40)
[2021-08-19] MEDS ORDERED: PREDNISONE 20MG TABLET PO SCH (09:00)
[2021-08-19 12:00] VITALS: BP 105/64
[2021-08-19 16:00] VITALS: BP 104/64
[2021-08-19] MEDS: ACETYLCYSTEINE 100MG/ML 10% VIAL 4ML INH SCH (16:44)
[2021-08-19 20:00] VITALS: BP 107/60
[2021-08-20] VITALS: BP 113/55
[2021-08-20] MEDS: BUDESONIDE 0.5MG/2ML NEB HHN SCH ×2 (00:30→08:05)
[2021-08-20] MEDS: IPRATROPIUM/ALBUTEROL 0.5-3(2.5)MG/3ML NEB HHN SCH ×6 (00:53→21:28)
[2021-08-20] MEDS: GUAIFENESIN 200MG/10ML SUGAR FREE UDC GT SCH ×6 (00:53→21:41)
[2021-08-20] MEDS: ACETYLCYSTEINE 100MG/ML 10% VIAL 4ML INH SCH ×4 (00:53→15:40)
[2021-08-20 04:00] VITALS: BP 124/73
[2021-08-20] MEDS: ENOXAPARIN 60MG/0.6ML SYR SUBCUT SCH ×2 (05:31→18:00)
[2021-08-20] MEDS: CEFEPIME 1,000 MG in DEXTROSE 5% WATER 50 ML IV SCH ×2 (05:31→19:16)
[2021-08-20] MEDS: PREDNISONE 20MG TABLET PO SCH ×2 (08:45→19:00)
[2021-08-20] MEDS: CARBAMAZEPINE 200MG TABLET PO SCH ×2 (08:46→21:41)
[2021-08-20 20:00] VITALS: BP 111/58
[2021-08-21] VITALS: BP 106/64
[2021-08-21] MEDS: GUAIFENESIN 200MG/10ML SUGAR FREE UDC GT SCH ×6 (00:28→21:24)
[2021-08-21] MEDS: BUDESONIDE 0.5MG/2ML NEB HHN SCH ×2 (00:30→04:56)
[2021-08-21] MEDS: IPRATROPIUM/ALBUTEROL 0.5-3(2.5)MG/3ML NEB HHN SCH ×6 (01:20→20:47)
[2021-08-21 04:00] VITALS: BP 102/70
[2021-08-21] MEDS: CEFEPIME 1,000 MG in DEXTROSE 5% WATER 50 ML IV SCH ×2 (04:23→17:44)
[2021-08-21] MEDS: ENOXAPARIN 60MG/0.6ML SYR SUBCUT SCH ×2 (05:35→18:48)
[2021-08-21] MEDS: LINEZOLID 600 MG PREMIX 300 ML IV SCH ×2 (05:35→18:04)
[2021-08-21 08:00] VITALS: BP 109/83
[2021-08-21] MEDS: CARBAMAZEPINE 200MG TABLET PO SCH ×2 (08:19→21:24)
[2021-08-21] MEDS: PREDNISONE 20MG TABLET PO SCH ×2 (08:20→17:50)
[2021-08-21 12:00] VITALS: BP 106/66
[2021-08-21 16:00] VITALS: BP 108/79
[2021-08-21 20:00] VITALS: BP 118/61
[2021-08-21] MEDS: ACETYLCYSTEINE 100MG/ML 10% VIAL 4ML INH SCH (20:57)
[2021-08-22] VITALS: BP 137/71
[2021-08-22] MEDS: IPRATROPIUM/ALBUTEROL 0.5-3(2.5)MG/3ML NEB HHN SCH ×5 (00:34→21:02)
[2021-08-22] MEDS: GUAIFENESIN 200MG/10ML SUGAR FREE UDC GT SCH ×6 (00:45→20:11)
[2021-08-22 04:00] VITALS: BP 132/76
[2021-08-22] MEDS: ENOXAPARIN 60MG/0.6ML SYR SUBCUT SCH ×2 (06:53→17:06)
[2021-08-22] MEDS: ACETYLCYSTEINE 100MG/ML 10% VIAL 4ML INH SCH ×2 (07:32→17:28)
[2021-08-22 07:41] VITALS: BP 100/66
[2021-08-22] MEDS: PREDNISONE 20MG TABLET PO SCH ×2 (09:07→17:05)
[2021-08-22] MEDS: CARBAMAZEPINE 200MG TABLET PO SCH ×2 (09:07→20:11)
[2021-08-22] MEDS: LINEZOLID 600MG TABLET PO SCH ×2 (09:10→20:14)
[2021-08-22 12:00] VITALS: BP 117/51
[2021-08-22 16:00] VITALS: BP 100/60
[2021-08-22] MEDS ORDERED: METHYLPREDNISOLONE SOD SUCC 125 MG/2 ML VIAL IV NR (16:45)
[2021-08-22 20:00] VITALS: BP 110/64
[2021-08-23] VITALS: BP 104/55
[2021-08-23] MEDS: GUAIFENESIN 200MG/10ML SUGAR FREE UDC GT SCH ×6 (00:15→21:22)
[2021-08-23] MEDS: IPRATROPIUM/ALBUTEROL 0.5-3(2.5)MG/3ML NEB HHN SCH ×6 (00:59→20:24)
[2021-08-23 04:00] VITALS: BP 113/68
[2021-08-23] MEDS: ENOXAPARIN 60MG/0.6ML SYR SUBCUT SCH ×2 (06:07→17:44)
[2021-08-23 08:00] VITALS: BP 112/65
[2021-08-23] MEDS: CARBAMAZEPINE 200MG TABLET PO SCH ×2 (08:54→21:22)
[2021-08-23] MEDS: PREDNISONE 20MG TABLET PO SCH ×2 (08:54→17:41)
[2021-08-23] MEDS: LINEZOLID 600MG TABLET PO SCH ×2 (08:54→21:22)
[2021-08-23 12:00] VITALS: BP 103/79
[2021-08-23 16:00] VITALS: BP 109/72
[2021-08-23 20:00] VITALS: BP 122/61
[2021-08-24] VITALS (7 sets, daily range): BP systolic 93–124; BP diastolic 49–73
[2021-08-24] MEDS: IPRATROPIUM/ALBUTEROL 0.5-3(2.5)MG/3ML NEB HHN SCH ×5 (00:31→16:16)
[2021-08-24] MEDS: GUAIFENESIN 200MG/10ML SUGAR FREE UDC GT SCH ×5 (05:24→15:43)
[2021-08-24] MEDS: ENOXAPARIN 60MG/0.6ML SYR SUBCUT SCH ×2 (05:28→18:00)
[2021-08-24 07:50] LABS: HEMATOCRIT. 31.6 % (42.0-52.0); MEAN CORPUSCULAR HEMOGLOBIN 37.8 pg (28.0-32.0); MEAN PLATELET VOLUME 8.3 fl (7.4-10.4); PLATELET 234 x1000/uL (130-400); RED CELL DISTRIBUTION WIDTH 15.4 % (11.6-14.6)
[2021-08-24 08:09] LABS: CHLORIDE 102 mEq/L (98-107)
[2021-08-24] MEDS: CARBAMAZEPINE 200MG TABLET PO SCH (08:38)
[2021-08-24] MEDS: PREDNISONE 20MG TABLET PO SCH ×2 (08:38→17:51)
[2021-08-24] MEDS: LINEZOLID 600MG TABLET PO SCH (08:38)
[2021-08-24] MEDS ORDERED: ALBU18HF2 IH (13:28)
[2021-08-24] MEDS ORDERED: IPRA3AMP9 NEB (13:28)
[2021-08-24] MEDS ORDERED: DEXTL MT (13:28)
[2021-08-24] MEDS ORDERED: P20 MT (13:28)
[2021-08-24 13:39] LABS: PLATELET ESTIMATE NORMAL
== END 2021-08-24 20:32 | disposition home health service (06) | DRG 871 ==
LOC: ER 12:41 → EDBEDREQ 13:38 → EDBEDREQSVC 16:36 → EDBEDREQTM 16:36 → EDBEDREQ 16:36 → MICUSO 18:27 → EDBEDREQTM 18:45 → EDBEDREQ 18:45 → CANRESERV 23:25 → ENRESERV 23:25 → MICUSO 08-11 01:57 → 3WST 08-12 05:09 → 6EST 08-14 17:29
PROVIDERS: ADMIT Internal Medicine; ATTEND Internal Medicine
DX: A41.81 Sepsis due to Enterococcus (principal); J18.9 Pneumonia, unspecified organism; J96.01 Acute respiratory failure with hypoxia; E87.1 Hypo-osmolality and hyponatremia; E87.2 Acidosis; E44.0 Moderate protein-calorie malnutrition; I50.32 Chronic diastolic (congestive) heart failure; J44.0 Chronic obstructive pulmonary disease with (acute) lower respiratory infection; J44.1 Chronic obstructive pulmonary disease with (acute) exacerbation; Z16.21 Resistance to vancomycin; N39.0 Urinary tract infection, site not specified; B96.5 Pseudomonas (aeruginosa) (mallei) (pseudomallei) as the cause of diseases classified elsewhere; Q90.9 Down syndrome, unspecified; G40.909 Epilepsy, unspecified, not intractable, without status epilepticus; D64.9 Anemia, unspecified; D72.810 Lymphocytopenia; I11.0 Hypertensive heart disease with heart failure; R13.10 Dysphagia, unspecified; Z93.3 Colostomy status; Z51.5 Encounter for palliative care; Z93.1 Gastrostomy status; Z99.81 Dependence on supplemental oxygen
CPT/HCPCS: 36415; 36600; 71045; 71250; 80048; 80053; 80061; 80202; 80305; 82270; 82375; 82550; 82553; 82805; 83605; 83880; 84145; 84443; 84484; 85025; 85044; 85379; 87077; 87186; 87426; 87804; 93005; 93306; 93923; 93970; 94640; 99291; J0692; J0696; J1650; J2020; J2543; J2920; J2930; J3370; J3490; J7030; J7040; J7060; J7512; J7608; J7626; U0003; U0005

== ENCOUNTER 2021-10-10 09:42 | Inpatient (IN) | payer MEDICARE, MEDICAID ==
[~2021-10-10] VITALS: Ht 165.1 cm; Wt 65.8 kg
[~2021-10-10 09:42] MED LIST changes: +ALBU18HF2 IH; +CARB200C7 GT; -CARB200C7 MT; +DEXTL MT; +IPRA3AMP9 NEB; +LINE600T14 MT; +P20 MT; -WARF1TAB85 MT
[2021-10-10] MEDS ORDERED: LEVOFLOXACIN 750MG PREMIX 150 ML IV ONE (10:15)
[2021-10-10] MEDS ORDERED: SODIUM CHLORIDE 0.9% 1000ML BAG (SEPSIS BOLUS) IV ONE (10:15)
[2021-10-10 10:55] LABS: BASOPHILS % 0.6 % (0.0-2.0); EOSINOPHILS % 2.7 % (0.0-5.0); HEMOGLOBIN. 11.3 g/dL (14.0-18.0); LYMPHOCYTES % 17.6 % (20.0-50.0); MEAN CORPUSCULAR HEMOGLOBIN 37.6 pg (28.0-32.0); MEAN CORPUSCULAR VOLUME 110.2 fL (80.0-94.0); MEAN PLATELET VOLUME 8.3 fl (7.4-10.4); MONOCYTES % 12.6 % (2.0-8.0); NEUTROPHILS % 66.5 % (40.0-76.0); PLATELET 260 x1000/uL (130-400); RED CELL DISTRIBUTION WIDTH 15.4 % (11.6-14.6)
[2021-10-10 11:02] LABS: CHLORIDE 102 mEq/L (98-107)
[2021-10-10] MEDS ORDERED: ALBUTEROL (0.083%) 2.5MG/3ML NEB HHN STA (11:26)
[2021-10-10] MEDS ORDERED: METHYLPREDNISOLONE SOD SUCC 125 MG/2 ML VIAL IV STA (11:26)
[2021-10-10] MEDS ORDERED: IPRATROPIUM BROMIDE (0.02%) 0.5MG/2.5ML NEB HHN STA (11:26)
[2021-10-10 11:34] LABS: PLATELET ESTIMATE NORMAL
[2021-10-10 12:11] LABS: BG BASE EXCESS 1.9 mmol/L (-2.0-2.0); BG CARBOXYHEMOGLOBIN 0.3 % (0.5-1.5); BG DEOXYHEMOGLOBIN 2.4 % (0.0-5.0); BG FRACTION INSPIRED OXYGEN 60; BG HCO3 ACT 26.7 mmol/L (22.0-26.0); BG METHEMOGLOBIN 0.2 % (0.0-1.5); BG OXYGEN SATURATION 97.6 % (92.0-98.5); BG OXYHEMOGLOBIN 97.1 % (94.0-97.0); BG PCO2 42.5 mmHg (35.0-45.0); BG PH 7.416 (7.350-7.450); BG PO2 104.7 mmHg (75.0-100.0); BG SAMPLE SITE RIGHT BRACHIAL; BG TOTAL HEMOGLOBIN 11.4 g/dL (12.0-18.0); BG VENT MODE MASK - SIMPLE
[2021-10-10 12:39] LABS: CLARITY URINE CLEAR (CLEAR); COLOR URINE YELLOW (YELLOW); KETONES URINE NEGATIVE (NEGATIVE); LEUKOCYTE ESTERASE URINE 2+ (NEGATIVE); NITRITE URINE NEGATIVE (NEGATIVE); OCCULT BLOOD URINE NEGATIVE (NEGATIVE); PH URINE 7.5 (4.5-8.0); PROTEIN URINE NEGATIVE (NEGATIVE); SPECIFIC GRAVITY URINE 1.015 (1.005-1.030); UROBILINOGEN URINE 0.2 E.U./dL (0.2-1.0)
[2021-10-10] MEDS: ALBUTEROL (0.083%) 2.5MG/3ML NEB HHN ONE ×4 (13:14→15:38)
[2021-10-10] MEDS ORDERED: DOCUSATE SODIUM 100MG CAPSULE PO PRN (18:30)
[2021-10-10] MEDS ORDERED: ONDANSETRON HCL 4MG/2ML INJ IV PRN (18:30)
[2021-10-10] MEDS ORDERED: ACETAMINOPHEN 325MG TABLET PO PRN ×2 (18:30)
[2021-10-10] MEDS ORDERED: LORAZEPAM 0.5MG TABLET PO PRN (18:30)
[2021-10-10] MEDS ORDERED: DOPAMINE 400MG/250ML PREMIX 250 ML IV PRN (19:00)
[2021-10-10] MEDS: METHYLPREDNISOLONE SOD SUCC 125 MG/2 ML VIAL IV SCH (20:00)
[2021-10-10] MEDS ORDERED: IOHEXOL-350 100 ML BOTTLE ONE (22:36)
[2021-10-11] MEDS: METHYLPREDNISOLONE SOD SUCC 125 MG/2 ML VIAL IV SCH (02:30)
[2021-10-11 05:28] LABS: HEMATOCRIT. 32.7 % (42.0-52.0); HEMOGLOBIN. 11.3 g/dL (14.0-18.0); MEAN CORPUSCULAR HEMOGLOBIN 38.3 pg (28.0-32.0); MEAN CORPUSCULAR VOLUME 110.8 fL (80.0-94.0); MEAN PLATELET VOLUME 8.4 fl (7.4-10.4); PLATELET 251 x1000/uL (130-400); RED BLOOD CELL COUNT 2.95 mill/uL (4.7-6.1); RED CELL DISTRIBUTION WIDTH 15.6 % (11.6-14.6)
[2021-10-11 05:33] LABS: CHLORIDE 108 mEq/L (98-107)
[2021-10-11 08:19] LABS: PLATELET ESTIMATE NORMAL
[2021-10-11] MEDS: IPRATROPIUM/ALBUTEROL 0.5-3(2.5)MG/3ML NEB HHN SCH ×2 (13:56→22:17)
[2021-10-11] MEDS: BUDESONIDE 0.5MG/2ML NEB HHN SCH ×2 (13:58→22:17)
[2021-10-11 14:32] VITALS: BP 111/81
[2021-10-11 14:44] VITALS: BP 111/81
[2021-10-11] MEDS: GUAIFENESIN 200MG/10ML SUGAR FREE UDC PO SCH ×2 (18:15→18:18)
[2021-10-11] MEDS: METHYLPREDNISOLONE SOD SUCC 40 MG/ML VIAL IV SCH (18:18)
[2021-10-11] MEDS ORDERED: SODI1TAB3 GT (19:04)
[2021-10-11] MEDS ORDERED: POTA8CAP20 GT (19:04)
[2021-10-11] MEDS ORDERED: ASCO500C18 GT (19:04)
[2021-10-11] MEDS ORDERED: ARFO15VI2 IH (19:04)
[2021-10-11] MEDS ORDERED: [UNRECOGNIZED DRUG - CODE] GT (19:04)
[2021-10-11] MEDS ORDERED: BUDE1AMP2 NEB (19:04)
[2021-10-11] MEDS ORDERED: ONDA4TAB50 GT (19:04)
[2021-10-11] MEDS ORDERED: DOCU50LI25 GT (19:04)
[2021-10-11] MEDS ORDERED: LEVO75TA7 GT (19:04)
[2021-10-11] MEDS ORDERED: POLY250017 GT (19:04)
[2021-10-11] MEDS ORDERED: LORA-249 GT (19:04)
[2021-10-11] MEDS ORDERED: TRAZ-251 GT (19:04)
[2021-10-11] MEDS ORDERED: OMEP20TA2 PO (19:04)
[2021-10-11 20:04] VITALS: BP 130/91
[2021-10-11] MEDS ORDERED: CARBAMAZEPINE 200MG TABLET PO SCH (21:00)
[2021-10-11] MEDS: CARBAMAZEPINE 200MG/10ML UDC PO SCH (21:57)
[2021-10-11 22:02] VITALS: BP 148/88
[2021-10-12] VITALS (12 sets, daily range): BP systolic 95–127; BP diastolic 29–77
[2021-10-12] MEDS: GUAIFENESIN 200MG/10ML SUGAR FREE UDC PO SCH ×4 (00:52→17:44)
[2021-10-12] MEDS: IPRATROPIUM/ALBUTEROL 0.5-3(2.5)MG/3ML NEB HHN SCH ×4 (04:30→21:40)
[2021-10-12 07:06] LABS: CHLORIDE 111 mEq/L (98-107)
[2021-10-12 07:15] LABS: HEMATOCRIT. 32.9 % (42.0-52.0); HEMOGLOBIN. 11.2 g/dL (14.0-18.0); LYMPHOCYTES % 12.4 % (20.0-50.0); MEAN CORPUSCULAR HEMOGLOBIN 37.8 pg (28.0-32.0); MEAN CORPUSCULAR VOLUME 110.6 fL (80.0-94.0); MEAN PLATELET VOLUME 8.8 fl (7.4-10.4); MONOCYTES % 9.6 % (2.0-8.0); PLATELET 255 x1000/uL (130-400); RED BLOOD CELL COUNT 2.98 mill/uL (4.7-6.1); RED CELL DISTRIBUTION WIDTH 15.5 % (11.6-14.6)
[2021-10-12] MEDS: METHYLPREDNISOLONE SOD SUCC 40 MG/ML VIAL IV SCH ×2 (09:19→22:46)
[2021-10-12] MEDS: CARBAMAZEPINE 200MG/10ML UDC PO SCH ×2 (09:19→22:47)
[2021-10-12] MEDS: BUDESONIDE 0.5MG/2ML NEB HHN SCH ×2 (10:44→21:40)
[2021-10-12] MEDS: CEFTRIAXONE 1,000 MG in DEXTROSE 5% WATER 50 ML IV SCH (10:50)
[2021-10-12] MEDS: AZITHROMYCIN 500 MG in DEXT 5% WATER 250 ML IV SCH (10:52)
[2021-10-13] VITALS (12 sets, daily range): BP systolic 96–132; BP diastolic 36–69
[2021-10-13] MEDS: GUAIFENESIN 200MG/10ML SUGAR FREE UDC PO SCH ×4 (01:03→17:16)
[2021-10-13] MEDS: IPRATROPIUM/ALBUTEROL 0.5-3(2.5)MG/3ML NEB HHN SCH ×4 (03:34→18:30)
[2021-10-13 07:22] LABS: HEMATOCRIT. 32.9 % (42.0-52.0); HEMOGLOBIN. 11.4 g/dL (14.0-18.0); MEAN CORPUSCULAR VOLUME 109.8 fL (80.0-94.0); MEAN PLATELET VOLUME 8.4 fl (7.4-10.4); PLATELET 262 x1000/uL (130-400); RED CELL DISTRIBUTION WIDTH 15.5 % (11.6-14.6)
[2021-10-13 07:40] LABS: CHLORIDE 108 mEq/L (98-107)
[2021-10-13] MEDS: BUDESONIDE 0.5MG/2ML NEB HHN SCH (09:02)
[2021-10-13] MEDS: CEFTRIAXONE 1,000 MG in DEXTROSE 5% WATER 50 ML IV SCH (09:49)
[2021-10-13] MEDS: AZITHROMYCIN 500 MG in DEXT 5% WATER 250 ML IV SCH (09:51)
[2021-10-13] MEDS: METHYLPREDNISOLONE SOD SUCC 40 MG/ML VIAL IV SCH ×2 (09:51→17:16)
[2021-10-13] MEDS: CARBAMAZEPINE 200MG/10ML UDC PO SCH ×2 (12:26→22:56)
[2021-10-13 13:09] LABS: PLATELET ESTIMATE NORMAL
[2021-10-14] VITALS (12 sets, daily range): BP systolic 96–123; BP diastolic 48–86
[2021-10-14] MEDS: GUAIFENESIN 200MG/10ML SUGAR FREE UDC PO SCH ×4 (00:17→23:02)
[2021-10-14] MEDS: IPRATROPIUM/ALBUTEROL 0.5-3(2.5)MG/3ML NEB HHN SCH ×4 (03:44→21:47)
[2021-10-14 08:08] LABS: CHLORIDE 107 mEq/L (98-107)
[2021-10-14 08:23] LABS: HEMATOCRIT. 33.8 % (42.0-52.0); HEMOGLOBIN. 11.4 g/dL (14.0-18.0); MEAN CORPUSCULAR HEMOGLOBIN 37.8 pg (28.0-32.0); MEAN PLATELET VOLUME 8.8 fl (7.4-10.4); PLATELET 245 x1000/uL (130-400); RED BLOOD CELL COUNT 3.02 mill/uL (4.7-6.1); RED CELL DISTRIBUTION WIDTH 15.6 % (11.6-14.6)
[2021-10-14] MEDS: BUDESONIDE 0.5MG/2ML NEB HHN SCH (09:00)
[2021-10-14] MEDS: METHYLPREDNISOLONE SOD SUCC 40 MG/ML VIAL IV SCH (09:33)
[2021-10-14] MEDS: CARBAMAZEPINE 200MG/10ML UDC PO SCH ×2 (09:33→23:02)
[2021-10-14] MEDS: AZITHROMYCIN 500 MG in DEXT 5% WATER 250 ML IV SCH (09:33)
[2021-10-14] MEDS: CEFTRIAXONE 1,000 MG in DEXTROSE 5% WATER 50 ML IV SCH (09:33)
[2021-10-14 13:48] LABS: PLATELET ESTIMATE NORMAL
[2021-10-15] VITALS (9 sets, daily range): BP systolic 111–140; BP diastolic 49–74
[2021-10-15] MEDS: IPRATROPIUM/ALBUTEROL 0.5-3(2.5)MG/3ML NEB HHN SCH ×4 (02:34→20:26)
[2021-10-15] MEDS: GUAIFENESIN 200MG/10ML SUGAR FREE UDC PO SCH ×5 (03:23→23:56)
[2021-10-15 07:54] LABS: HEMATOCRIT. 34.3 % (42.0-52.0); HEMOGLOBIN. 11.8 g/dL (14.0-18.0); MEAN CORPUSCULAR VOLUME 110.8 fL (80.0-94.0); MEAN PLATELET VOLUME 8.7 fl (7.4-10.4); PLATELET 242 x1000/uL (130-400); RED CELL DISTRIBUTION WIDTH 15.6 % (11.6-14.6)
[2021-10-15 08:18] LABS: CHLORIDE 105 mEq/L (98-107)
[2021-10-15] MEDS: AZITHROMYCIN 500 MG in DEXT 5% WATER 250 ML IV SCH (10:58)
[2021-10-15] MEDS: CEFTRIAXONE 1,000 MG in DEXTROSE 5% WATER 50 ML IV SCH (10:58)
[2021-10-15] MEDS: CARBAMAZEPINE 200MG/10ML UDC PO SCH ×2 (10:58→22:26)
[2021-10-15] MEDS: METHYLPREDNISOLONE SOD SUCC 40 MG/ML VIAL IV SCH (10:59)
[2021-10-15 21:51] LABS: PLATELET ESTIMATE NORMAL
[2021-10-16] VITALS (11 sets, daily range): BP systolic 98–130; BP diastolic 52–80
[2021-10-16] MEDS: IPRATROPIUM/ALBUTEROL 0.5-3(2.5)MG/3ML NEB HHN SCH ×4 (03:06→21:08)
[2021-10-16] MEDS: GUAIFENESIN 200MG/10ML SUGAR FREE UDC PO SCH ×3 (06:13→17:17)
[2021-10-16] MEDS: AZITHROMYCIN 500 MG in DEXT 5% WATER 250 ML IV SCH (09:09)
[2021-10-16] MEDS: METHYLPREDNISOLONE SOD SUCC 40 MG/ML VIAL IV SCH (09:09)
[2021-10-16] MEDS: CARBAMAZEPINE 200MG/10ML UDC PO SCH ×2 (09:10→22:25)
[2021-10-16] MEDS: CEFTRIAXONE 1,000 MG in DEXTROSE 5% WATER 50 ML IV SCH (12:21)
[2021-10-16] MEDS: PREDNISONE 20MG TABLET PO SCH (17:17)
[2021-10-16] MEDS: BUDESONIDE 0.5MG/2ML NEB HHN SCH (21:07)
[2021-10-17 00:11] VITALS: BP 122/77
[2021-10-17] MEDS: GUAIFENESIN 200MG/10ML SUGAR FREE UDC PO SCH ×4 (01:18→18:11)
[2021-10-17] MEDS: IPRATROPIUM/ALBUTEROL 0.5-3(2.5)MG/3ML NEB HHN SCH ×3 (02:40→20:44)
[2021-10-17 04:11] VITALS: BP 136/76
[2021-10-17] MEDS: PREDNISONE 20MG TABLET PO SCH ×3 (06:53→18:12)
[2021-10-17 08:00] VITALS: BP 111/73
[2021-10-17] MEDS: CARBAMAZEPINE 200MG/10ML UDC PO SCH ×2 (09:57→21:54)
[2021-10-17] MEDS: CEFTRIAXONE 1,000 MG in DEXTROSE 5% WATER 50 ML IV SCH (09:58)
[2021-10-17] MEDS: AZITHROMYCIN 500 MG in DEXT 5% WATER 250 ML IV SCH (09:59)
[2021-10-17 12:00] VITALS: BP 112/67
[2021-10-17 16:00] VITALS: BP 118/66
[2021-10-17] MEDS: BUDESONIDE 0.5MG/2ML NEB HHN SCH (20:43)
[2021-10-17 21:00] VITALS: BP 115/74
[2021-10-18] VITALS: BP 120/46
[2021-10-18] MEDS: IPRATROPIUM/ALBUTEROL 0.5-3(2.5)MG/3ML NEB HHN SCH ×3 (00:51→13:23)
[2021-10-18] MEDS: GUAIFENESIN 200MG/10ML SUGAR FREE UDC PO SCH ×4 (01:34→17:35)
[2021-10-18 04:00] VITALS: BP 139/69
[2021-10-18 06:48] LABS: HEMATOCRIT. 37.5 % (42.0-52.0); HEMOGLOBIN. 12.5 g/dL (14.0-18.0); MEAN CORPUSCULAR HEMOGLOBIN 37.4 pg (28.0-32.0); MEAN CORPUSCULAR VOLUME 112.3 fL (80.0-94.0); MEAN PLATELET VOLUME 8.7 fl (7.4-10.4); PLATELET 219 x1000/uL (130-400); RED BLOOD CELL COUNT 3.34 mill/uL (4.7-6.1); RED CELL DISTRIBUTION WIDTH 15.5 % (11.6-14.6)
[2021-10-18 06:53] LABS: CHLORIDE 103 mEq/L (98-107)
[2021-10-18 08:00] VITALS: BP 98/62
[2021-10-18] MEDS: BUDESONIDE 0.5MG/2ML NEB HHN SCH (08:39)
[2021-10-18] MEDS: CARBAMAZEPINE 200MG/10ML UDC PO SCH ×2 (09:51→22:11)
[2021-10-18] MEDS: PREDNISONE 20MG TABLET PO SCH ×2 (09:51→17:35)
[2021-10-18 12:00] VITALS: BP 109/70
[2021-10-18 15:04] LABS: PLATELET ESTIMATE NORMAL
[2021-10-18 16:00] VITALS: BP 136/82
[2021-10-18 20:00] VITALS: BP 150/84
[2021-10-19] VITALS (7 sets, daily range): BP systolic 103–136; BP diastolic 65–89
[2021-10-19] MEDS: GUAIFENESIN 200MG/10ML SUGAR FREE UDC PO SCH ×4 (00:51→19:01)
[2021-10-19] MEDS: IPRATROPIUM/ALBUTEROL 0.5-3(2.5)MG/3ML NEB HHN SCH ×2 (10:01→15:35)
[2021-10-19] MEDS: CARBAMAZEPINE 200MG/10ML UDC PO SCH ×2 (10:14→21:03)
[2021-10-19] MEDS: PREDNISONE 20MG TABLET PO SCH ×2 (10:14→19:01)
[2021-10-19] MEDS ORDERED: DEXTL MT (11:01)
[2021-10-19] MEDS ORDERED: BUDE1AMP2 NEB (11:01)
[2021-10-19] MEDS ORDERED: P20 MT (11:01)
[2021-10-19] MEDS ORDERED: ALBU18HF2 IH (11:01)
[2021-10-19] MEDS ORDERED: PANTOPRAZOLE 40MG DR TABLET PO SCH (12:15)
[2021-10-19] MEDS: BUDESONIDE 0.5MG/2ML NEB HHN SCH (15:36)
== END 2021-10-19 21:15 | DRG 871 ==
LOC: ER 09:42 → MICUSO 14:46 → EDBEDREQ 14:58 → EDBEDREQSVC 15:52 → 3WST 10-11 13:30 → 7WST 10-17 17:35
PROVIDERS: ADMIT Internal Medicine; ATTEND Internal Medicine
DX: A41.9 Sepsis, unspecified organism (principal); J18.9 Pneumonia, unspecified organism; J96.01 Acute respiratory failure with hypoxia; J96.02 Acute respiratory failure with hypercapnia; J44.0 Chronic obstructive pulmonary disease with (acute) lower respiratory infection; I50.32 Chronic diastolic (congestive) heart failure; J44.1 Chronic obstructive pulmonary disease with (acute) exacerbation; R65.10 Systemic inflammatory response syndrome (SIRS) of non-infectious origin without acute organ dysfunction; D53.9 Nutritional anemia, unspecified; Z20.822 Contact with and (suspected) exposure to COVID-19; R13.10 Dysphagia, unspecified; L89.896 Pressure-induced deep tissue damage of other site; D72.0 Genetic anomalies of leukocytes; G40.909 Epilepsy, unspecified, not intractable, without status epilepticus; Z93.3 Colostomy status; Z93.1 Gastrostomy status; Q90.9 Down syndrome, unspecified; Z99.81 Dependence on supplemental oxygen; Z79.899 Other long term (current) drug therapy
CPT/HCPCS: 36415; 36600; 70490; 71045; 71275; 80048; 80053; 81003; 82375; 82805; 83605; 83880; 84145; 84484; 85025; 85379; 87070; 87426; 93005; 94640; 99291; J0456; J0696; J1956; J2920; J2930; J7030; J7060; J7512; J7626; Q9967; A4315